=== PATIENT | female | born 1945 | race Caucasian/White ===

== ENCOUNTER → 2016-12-06 | Day surgery (SDC) | payer MEDICARE ==
[~2016-12-06] MED LIST: BACITRACIN IM FOR SOLN 50,000 UNIT VIAL ONE; LACTATED RINGER'S 1000 ML INJ 1,000 ML ONE; LEVA500T PO; LIDOCAINE 1%/EPINEPHrine 1:100,000 SOLN 30 ML VIAL ONE; MEPERIDINE HCL 25 MG/ML VIAL ONE; MIDAZOLAM HCL 2 MG/2 ML VIAL ONE; ONDANSETRON HCL 4 MG/2 ML VIAL IV PUSH ONE; OXYC1SOL5 PO; PROPOFOL 200 MG/20 ML AMP IV ONE; SIMV10 PO; SODIUM CHLORIDE 0.9% INJ 10 ML ONE; SYNT75TA PO; ceFAZolin 2 GM PREMIX 50 ML ONE; ceFAZolin INJ 1,000 MG VIAL ONE
--- NOTE | 2016-12-07 09:03 | MP ---
cc: SUNIL CASTAÑEDA M.D. DATE OF SURGERY 12/06/2016 PREOPERATIVE DIAGNOSES Displaced bilateral breast implant s/p reconstruction. POSTOPERATIVE DIAGNOSIS Displaced bilateral breast implant s/p reconstruction. OPERATION Removal bilateral breast implants from reconstructed breasts, bilateral breast reshaping with capsulorrhaphy and elevation of inframammary fold and reconstruction using AlloMax graft and new high profile silicone gel, smooth, round Allergan Natrelle implants, Style [address] Castañeda. ANESTHESIA General. INDICATIONS This is a 71-year-old white female who has undergone multiple surgeries in the past for previous breast cancer, bilateral mastectomies, bilateral tissue expanders, bilateral silicone gel reconstruction, minor superficial infection of the right breast. Over the past several months the patient has experienced displacement of the implants on both sides. She has a fairly small body, has lax tissue in the mastectomy flaps that have stretched out, also the inframammary fold has displaced down by almost 1 inch on both sides from the previous surgical incision level and the implants are also shifted beyond the mid-axillary line towards the posterior axillary line, again on both sides. The patient wishes to go ahead and correct the deformities. She underwent explanation of the overall techniques required, also in order to narrow down the implant base, previous moderate profile 304 cc implants can be replaced with a higher profile implant, either Style 20 or an Inspira were being considered. The final volume also in the same range or slightly higher in order to accommodate the excessive space that has been created by the displaced implants. The patient understands the general risks and complications and possibility of intraoperative, postoperative and long-term issues including possible loss of reconstruction in the case of an infection around the prosthesis that cannot be controlled. The patient is willing to go ahead with the surgery. PROCEDURE The patient was brought to the operating room, was given supine position. Anesthesia was started. Prep and drape was done. IV antibiotic had been given. Time-out was called and completed. The preoperative markings were reinforced. The outline of the normal anatomical boundaries were also marked, particularly the anterior axillary fold, the midline, the parasternal borders and the current position of the inframammary fold. The surgery was started using local anesthesia injection into the previous horizontal lower pole surgical scar. The incision was opened right down to the capsule and it was noted that the previous AlloMax has been nearly absorbed, not much/traces of AlloMax found on the periphery but the central portion is not there anymore. The implants are otherwise clean, intact. They were removed and placed in sterile saline for the time being. The cavity was inspected and it was noted that the previously placed anterior axillary line sutures were seen on the chest wall; however, the lateral axillary gutter had moved out almost 1-1/4 inches beyond this point. The capsule was incised just in front of the previous surgical suture line. Some of the silk sutures were removed. Breasts were left alone. The lateral axillary capsule was also removed to create more area. A single line of suture was first placed matching the anterior axillary line and it was rounded off into the inframammary fold. The inframammary fold also was moved approximately 1 inch. The previous implants were used as sizers to check the new position and the overall shape. It still needed to be narrowed down and this was done with the help of the AlloMax graft, 8 x 16, one on each side, serial number [id number] on the patient's right and serial number [id number] on the patient's left. The AlloMax was hydrated with antibiotic solution and it was started off on the medial corner, running along the inframammary fold and into the anterior axillary line and it was first sutured with one line and then subsequently, after checking with the implant position and placement, a second line was added to both sides ultimately giving three separate lines of closure on the lateral aspect in particular. The superior pole of the cavity was opened on both sides to accommodate the implant more medially. However, overall the cavity has been enlarged significantly and it was necessary still to go up on the volume. The implant selected was Style 20 high profile, smooth, round silicone gel implant. The serial number on the right side is [id number]; the serial number on the left is [id number]. The implants were placed in the pocket. The AlloMax was smoothed over the lower wall and the cavity was closed with 2-0 and 4-0 Vicryls and the skin was closed with 4-0 Prolene. The bleeding had been minimal and well-controlled, no need for drains. The overall volume and projection and position of the implant was satisfactory and symmetric. The patient remained stable through the procedure. Intraoperative blood loss less than 30-40 cc total. No complications. signed, not fully reviewed MD HANS Stevenson/KAREN /9:11 PM /8:42 AM [facility]
== END | disposition home or self-care (01) ==
LOC: ESDC 07:32
PROVIDERS: ATTEND Plastic Surgery
DX: Z85.3 Personal history of malignant neoplasm of breast (principal); T85.42XA Displacement of breast prosthesis and implant, initial encounter
CPT/HCPCS: 00402; 15777; 19340; 19380; C1789; J0690; J2250; J2405; J3010; J7120; Q4100; J2175